=== PATIENT | female | born 1950 | race Caucasian/White ===

== ENCOUNTER 2018-02-16 09:58 | Outpatient (CLI) | payer MEDICARE, SELFPAY ==
--- NOTE | 2018-02-16 06:00 | DI.RAD_ITS ---
SYMPTOM/DIAGNOSIS: LUMBAR RADICULOPATHY C-ARM FLUOROSCOPY LUMBAR SPINE: Fluoroscopy Time: 23.5 seconds/10.19mGy Fluoroscopy was provided for guidance with lumbar spine [facility] injection. Hard copy images show needle placement at the L4 level. Please see procedure note for details.
[2018-02-16 10:21] VITALS: BP 125/80; PULSE 93; RESP 22; TEMP 36.8; O2SAT 95
[2018-02-16 11:13] VITALS: BP 113/79; PULSE 96; RESP 16; O2SAT 96
--- NOTE | 2018-02-16 11:15 | PDOC.PAIN ---
Pain Clinic Procedure Note Current Active Problems Problem Status Onset Lumbar radicular syndrome Acute Lumbar Epidural Steroid Injection Procedure Note COMMENTS: I reviewed Ms. Santos's evaluation from 02/11/18 and her recent lumbar spine MRI from 01/19/18. Her pre-procedure pain level is 5/10. DX: Lumbosacral radiculopathy OPAL BANEGAS has been referred to the [facility] for lumbar epidural steroid injection. The patient was greeted by the nurse who verified patients name and . Patient was then taken to the fluoroscopy suite. The patient was interviewed and the medial record reviewed. There were no medical, pharmacologic, radiographic, or other structural contraindications to attempting fluoroscopically guided lumbar epidural steroid injection. Risks and expected side effects as well as potential benefits of the procedure were reviewed and voiced concerns expressed. The patient consent form was signed and witnessed. Standard patient time-out procedure was performed. The patient was placed in the prone position on the fluoroscopy table and automated blood pressure cuff and pulse oximeter applied. The skin entry point for entering/approaching the epidural space at L3-L4 and marked. Following thorough chlorhexadine preparation of the skin and draping and 1% lidocaine infiltration of the skin entry point and subcutaneous tissues, a 18 gauge Touhy needle was placed under fluoroscopic guidance and with loss of resistance technique into the epidural space. Needle tip placement and depth were aided and confirmed by fluoroscopy. There was no paresthesia or return of blood or CSF through the needle. 1 cc's of Omnipaque 240 was injected with clear epidural spread confirmed with fluoroscopy. 80mg depomedrol was injected. There was not any unusual discomfort expressed by OPAL BANEGAS. Patient's vital signs were stable throughout the procedure and were as recorded in nursing records. Follow up plans and appointments were discussed with patient. Post procedure instruction was given as documented in nursing records and having met discharge criteria and was discharged from the [facility]. COMMENTS: This procedure can be completed up to 3 times per year if it is found to be effective. Her post-procedure pain level was 2/10.
[2018-02-16] MEDS: methylPREDNISolone ACETATE 40 MG/ML VIAL IJ (11:26)
[2018-02-16] MEDS: Omnipaque 240 MG/ML 50 ML BTL IJ (11:26)
== END 2018-02-16 10:18 ==
PROVIDERS: PCP Legal Medicine; Visit Provider Preventive Medicine Occupational Medicine
DX: M54.17 Radiculopathy, lumbosacral region (principal)
CPT/HCPCS: 62323; 72100; J1030; Q9967

== ENCOUNTER 2019-02-22 12:43 | Outpatient (CLI) | payer MEDICARE, SELFPAY ==
[2019-02-22 12:45] VITALS: BP 124/76; PULSE 98; RESP 24; TEMP 36.6; O2SAT 89
--- NOTE | 2019-02-22 12:53 | PDOC.PAIN ---
Pain Clinic Procedure Note Procedure Note Procedure Note: Lumbar Epidural Steroid Injection Procedure Note Pre-operative diagnosis: lumbosacral radiculopathy Post-operative diagnosis: same as above COMMENTS: patient responded well to prior LESI done by Dr Bean in 02/2018 which provided ~10 months of significant pain relief. OPAL BANEGAS has been referred to the [facility] for lumbar epidural steroid injection. The patient was greeted by the nurse who verified patients name and . Patient was then taken to the fluoroscopy suite. The patient was interviewed and the medial record reviewed. There were no medical, pharmacologic, radiographic, or other structural contraindications to attempting fluoroscopically guided lumbar epidural steroid injection. Risks and expected side effects as well as potential benefits of the procedure were reviewed and voiced concerns expressed. The patient consent form was signed and witnessed. Standard patient time-out procedure was performed. The patient was placed in the prone position on the fluoroscopy table and automated blood pressure cuff and pulse oximeter applied. The skin entry point for entering/approaching the epidural space by a L3-4 and marked. Following thorough chlorhexadine preparation of the skin and draping and 1% lidocaine infiltration of the skin entry point and subcutaneous tissues, a 18 gauge Touhy needle was placed under fluoroscopic guidance and with loss of resistance technique into the epidural space. Needle tip placement and depth were aided and confirmed by fluoroscopy. There was no paresthesia or return of blood or CSF through the needle. 1 cc's of Omnipaque 240 was injected with clear epidural spread confirmed with fluoroscopy. 15mg of dexamethasone was injected, with 0.5cc of preservative 1% lidocaine and 1cc of preservative free normal saline. There was not any unusual discomfort expressed by OPAL BANEGAS. Patient's vital signs were stable throughout the procedure and were as recorded in nursing records. Follow up plans and appointments were discussed with patient. Post procedure instruction was given as documented in nursing records and having met discharge criteria and was discharged from the [facility]. COMMENTS: If this procedure is helpful, it can be completed up to 3 times per 12 months. If this fails to improve patient's symptoms, may need updated MRI L spine to ensure no progressive worsening of spinal stenosis. Rich Hilario MD Pain Management
[2019-02-22 13:40] VITALS: BP 143/94; PULSE 94; RESP 22; O2SAT 90
[2019-02-22] MEDS: Omnipaque 240 MG/ML 50 ML BTL IJ (13:41)
[2019-02-22] MEDS: Dexamethasone 10 MG/ML VIAL IM (13:49)
--- NOTE | 2019-02-22 14:30 | DI.RAD_ITS ---
EXAM: XR PAIN CLINIC LUMBAR SP 2V CLINICAL HISTORY: Dx: Lumbar Radiculopathy. TECHNIQUE: Fluoroscopy was provided for the referring physician for guidance with performing injecti on procedure. COMPARISON: No exams were available for comparison FINDINGS: Please see procedure note for details. Fluoro Time: 45.9 seconds
== END 2019-02-22 13:03 ==
PROVIDERS: PCP Legal Medicine; Visit Provider Internal Medicine
DX: M54.17 Radiculopathy, lumbosacral region (principal)
CPT/HCPCS: 62323; 72100; J1100; Q9967

== ENCOUNTER 2019-10-04 07:50 | Outpatient (CLI) | payer MEDICARE, SELFPAY ==
--- NOTE | 2019-10-04 06:00 | DI.RAD_ITS ---
EXAM: XR PAIN CLINIC LUMBAR SP 2V CLINICAL HISTORY: Lumbar Radiculopathy. TECHNIQUE: Fluoroscopy was provided for the referring physician for guidance with performing injecti on procedure. COMPARISON: No exams were available for comparison FINDINGS: Please see procedure note for details. Fluoro time: 20.0 sec RADIATION DOSE DELIVERED:
[2019-10-04 08:00] VITALS: BP 97/60; PULSE 82; RESP 16; TEMP 36.3; O2SAT 92
--- NOTE | 2019-10-04 08:03 | PDOC.PAIN ---
Pain Clinic Procedure Note Procedure Note Procedure Note: Lumbar Epidural Steroid Injection Procedure Note Pre-operative diagnosis: lumbosacral radiculopathy Post-operative diagnosis: same as above COMMENTS: patient responded well to prior LESI done by Dr Bean in 02/2018 which provided ~10 months of significant pain relief. Last injection by me on 02/22/2019 and provided ~4 months of pain relief. OPAL BANEGAS has been referred to the [facility] for lumbar epidural steroid injection. The patient was greeted by the nurse who verified patients name and . Patient was then taken to the fluoroscopy suite. The patient was interviewed and the medial record reviewed. There were no medical, pharmacologic, radiographic, or other structural contraindications to attempting fluoroscopically guided lumbar epidural steroid injection. Risks and expected side effects as well as potential benefits of the procedure were reviewed and voiced concerns expressed. The patient consent form was signed and witnessed. Standard patient time-out procedure was performed. The patient was placed in the prone position on the fluoroscopy table and automated blood pressure cuff and pulse oximeter applied. The skin entry point for entering/approaching the epidural space by a L4-5 and marked. Following thorough chlorhexadine preparation of the skin and draping and 1% lidocaine infiltration of the skin entry point and subcutaneous tissues, a 18 gauge Touhy needle was placed under fluoroscopic guidance and with loss of resistance technique into the epidural space. Needle tip placement and depth were aided and confirmed by fluoroscopy. There was no paresthesia or return of blood or CSF through the needle. 1 cc's of Omnipaque 240 was injected with clear epidural spread confirmed with fluoroscopy. 15mg of dexamethasone was injected, with 0.5cc of preservative 1% lidocaine and 1cc of preservative free normal saline. There was not any unusual discomfort expressed by OPAL BANEGAS. Patient's vital signs were stable throughout the procedure and were as recorded in nursing records. Follow up plans and appointments were discussed with patient. Post procedure instruction was given as documented in nursing records and having met discharge criteria and was discharged from the [facility]. COMMENTS: If this procedure is helpful, it can be completed up to 3 times per 12 months. If this fails to improve patient's symptoms, I would recommend an interval clinic follow up with Ms Aremburg and perhaps an updated MRI L spine to ensure no progressive worsening of spinal stenosis. Rich Hilario MD Pain Management
[2019-10-04] MEDS: Dexamethasone Sod. Phos./Pres-Free 10 MG/ML VIAL IJ (08:30)
[2019-10-04] MEDS: Omnipaque 240 MG/ML 50 ML BTL IJ (08:32)
[2019-10-04 08:50] VITALS: BP 127/82; PULSE 87; RESP 20; O2SAT 97
== END 2019-10-04 08:10 ==
PROVIDERS: PCP Legal Medicine; Visit Provider Internal Medicine
DX: M54.17 Radiculopathy, lumbosacral region (principal)
CPT/HCPCS: 62323; 72100; Q9967